=== PATIENT | male | born 1970 | race Caucasian/White ===

== ENCOUNTER → 2017-04-19 | Emergency (ER) | payer OTHER ==
[~2017-04-19] VITALS: Ht 177.8 cm; Wt 77.1 kg
[~2017-04-19] MED LIST: JENTADUETO XR1 EACH; OSEL75CA PO; TUSSI PRES-B L120 M1 PO
== END | disposition home or self-care (01) ==
LOC: ER 09:14
DX: B34.9 Viral infection, unspecified (principal); E11.65 Type 2 diabetes mellitus with hyperglycemia

== ENCOUNTER 2025-02-11 17:40 | Inpatient (IN) | payer OTHER ==
[~2025-02-11] VITALS: Ht 175.3 cm; Wt 86.2 kg
[2025-02-11] MEDS ORDERED: TOPROL XL25 M1 PO (19:08)
[2025-02-11] MEDS ORDERED: LANTUS SOL100 UNIT/1 SQ (19:08)
[2025-02-11] MEDS ORDERED: ARBLI10 MG/1 ML PO (19:10)
[2025-02-11] MEDS ORDERED: GLIMEPIRIDE1 M1 PO (19:10)
--- NOTE | 2025-02-11 19:13 | NUR ---
SE RECIBE PTE ALERTA Y ORIENTADO X3 REFIRIENDO [facility] Y VOMITOS Y DIARREAS. REFIERE EL ALVAREZ DE [employer] S[employer]ERS TENIDO 1 EPISODIO DE VOMITOS. SE MIDEN S/V Y SE UBICA.
[2025-02-11] MEDS ORDERED: LACTOBACILLUS ACIDOPHILUS 1 CAP CAP PO ONE ×2 (19:30→21:41)
[2025-02-11] MEDS ORDERED: ONDANSETRON HCL 2 MG/ML VIAL IV ONE (19:30)
[2025-02-11] MEDS ORDERED: LEVALBUTEROL HCL 1.25 MG/3 ML SOLUTION IH SCH (19:30)
[2025-02-11] MEDS ORDERED: IPRATROPIUM BROMIDE 0.5 MG/2.5 ML AMPUL.NEB IH SCH (19:30)
[2025-02-11] MEDS ORDERED: FAMOTIDINE/PF 20 MG/2 ML VIAL IV ONE (19:30)
[2025-02-11] MEDS ORDERED: BUDESONIDE 0.5 MG/2 ML AMPUL.NEB IH ONE ×2 (19:30→21:25)
[2025-02-11] MEDS ORDERED: 0.9 % SODIUM CHLORIDE 1,000 ML IV ONE (19:30)
[2025-02-11] MEDS ORDERED: IPRATROPIUM BROMIDE 0.5 MG/2.5 ML AMPUL.NEB IH ONE (21:25)
[2025-02-11] MEDS ORDERED: FAMOTIDINE/PF 20 MG/2 ML VIAL ONE (21:41)
[2025-02-11] MEDS ORDERED: ONDANSETRON HCL 2 MG/ML VIAL ONE (21:42)
[2025-02-11 22:11] LABS: BASO % 0.5 % (0.1-1.2); EOS # 0.14 (0.04-0.54); EOS % 3.2 % (0.7-7.0); LYMPH # 0.41 (1.18-3.74); LYMPH % 9.3 % (19.3-53.1); MEAN PLATELET VOLUME 10.10 fl (9.4-12.4); MONO # 0.47 (0.24-0.82); MONO % 10.7 % (4.7-12.5); NEUT # 3.35 (1.56-6.13); NEUT % 76.1 % (34.0-71.1); RED CELL DISTRIBUTION WIDTH 15.0 % (11.6-14.4)
[2025-02-11 22:38] LABS: ALT/SGPT 78.0 U/L (12-78); AST/SGOT 23.0 U/L (15-37); BILIRUBIN TOTAL 0.55 mg/dL (0.3-1.2); BILIRUBIN,CONJUGATED 0.18 mg/dL (0.0-0.2); BUN CREA RATIO 12.0 (7.0-25.0); GFR 13.42; GLOBULINA 3.5 G/DL (2.4-3.5)
[2025-02-11 22:45] LABS: GLUCOSE FASTING 226.0 mg/dL (65-100); OSMOLALITY SERUM 305.0 MOSM/KG (275-295)
[2025-02-11 22:46] LABS: CREATININE SERUM 4.59 mg/dL (0.70-1.30)
--- NOTE | 2025-02-11 22:48 | NUR ---
SE EDUCA PACIENTE SOBRE EL [place] MEDICO Y ESTA REFIERE ENTENDER. SE BILL MUESTRAS DE LABORATORIOS Y SE ENVIAN. SE CANALIZA Y SE ADMINISTRA MEDICAMENTOS MAGNOLIA ORDEN MEDICA. SE ENTREGA ENVASE DE FECAL
[2025-02-11] MEDS ORDERED: 0.9 % SODIUM CHLORIDE 500 ML IV ONE (23:30)
[2025-02-11] MEDS ORDERED: AMLODIPINE BESYLATE 5 MG TABLET PO ONE (23:30)
[2025-02-11 23:49] LABS: COVID-19 AG NEGATIVE (NEGATIVE)
[2025-02-12 03:52] LABS: INR 1.05
[2025-02-12 07:03] LABS: URINE APPEARANCE Clear; URINE BILIRRUBIN Negative (NEGATIVE); URINE BLOOD Moderate; URINE COLOR Yellow; URINE KETONE Trace (NEGATIVE); URINE LEUKOCYTE Negative; URINE NITRATE Negative; URINE PROTEIN >=1000 (NEGATIVE); URINE UROBILINOGEN 0.2 E.U./dl
[2025-02-12 07:07] LABS: URINE BACTERIA 50.4 uL (0.0-1933); URINE CAST 1.61 uL (0.0-1.40); URINE EPITHELIAL CELLS 7.3 uL (0.0-38.8); URINE RBC 3.9 uL (0.0-20.8); URINE WBC 2.9 uL (0.0-23.2)
[2025-02-12 07:22] LABS: URINE GLUCOSE 250 MG/DL (NEGATIVE)
--- NOTE | 2025-02-12 07:32 | NUR ---
SE RECIBE PACIENTE ALERTA Y ORIENTADO X3. BARANDAS SE ENCUENTRAN ELEBADAS. SE PROCEDE A KULDIP S/V.
[2025-02-12] MEDS ORDERED: APIXABAN 5 MG TABLET PO SCH (10:28)
[2025-02-12] MEDS ORDERED: DOXAZOSIN MESYLATE 4 MG TABLET PO SCH (10:28)
[2025-02-12] MEDS ORDERED: METOPROLOL SUCCINATE 50 MG TAB.SR.24H PO SCH (10:29)
[2025-02-12] MEDS ORDERED: PANTOPRAZOLE SODIUM 40 MG/VIAL VIAL IV PUSH SCH (10:29)
[2025-02-12] MEDS ORDERED: DEXTROSE 50 % IN WATER 0.5 G/ML DISP.SYRIN IV PRN (10:30)
[2025-02-12] MEDS ORDERED: INSULIN LISPRO 1,000 UNIT/10 ML UNITS SUBCUTANEO PRN (10:30)
[2025-02-12] MEDS ORDERED: ONDANSETRON 4 MG TAB.RAPDIS PO PRN (10:30)
[2025-02-12] MEDS ORDERED: 0.9 % SODIUM CHLORIDE 1,000 ML IV SCH (10:30)
[2025-02-12 14:10] VITALS: BP 160/90; O2SAT 98
[2025-02-13 01:15] VITALS: BP 145/74; O2SAT 96
[2025-02-13 07:42] LABS: ALT/SGPT 49.0 U/L (12-78); AST/SGOT 20.0 U/L (15-37); BILIRUBIN TOTAL 0.48 mg/dL (0.3-1.2); CHOL HDL RATIO 5.8 (0-5.0); GLOBULINA 2.7 G/DL (2.4-3.5); GLUCOSE FASTING 163.0 mg/dL (65-100); HDL 26.0 mg/dl (40-60); LDL 102.0 mg/dl (0-130); OSMOLALITY SERUM 296.0 MOSM/KG (275-295); PROSTATIC SPECIFIC ANTIGEN 0.698 NG/ML (0.010-4.00); T4 FREE 1.34 NG/ML (0.76-1.46); TSH 0.591 uIU/mL (0.358-3.74); VLDL 23.0 (0-39)
[2025-02-13 08:18] LABS: BUN CREA RATIO 12.0 (7.0-25.0); GFR 13.38
[2025-02-13 08:19] LABS: CREATININE SERUM 4.6 mg/dL (0.70-1.30)
[2025-02-13 09:22] VITALS: BP 166/92; O2SAT 96
[2025-02-13] MEDS ORDERED: RINGERS SOLUTION,LACTATED 1,000 ML IV SCH (11:00)
[2025-02-13] MEDS ORDERED: SOD FERRIC GLUC COMPLX/SUCROSE 62.5 MG in 0.9 % SODIUM CHLORIDE 50 ML IV SCH (12:00)
[2025-02-13] MEDS ORDERED: MAGNESIUM SULFATE/D5W 1GM/100ML PIGGYBAG IV NR (12:15)
[2025-02-13] MEDS ORDERED: CALCITRIOL 0.5 MCG CAPSULE PO NR (12:15)
[2025-02-13] MEDS ORDERED: ISOSORBIDE MONONITRATE 30 MG TABLET PO NR (12:15)
[2025-02-13] MEDS ORDERED: CITRIC ACID/SODIUM CITRATE 30 ML BLIST.PACK PO SCH (17:00)
[2025-02-13] MEDS ORDERED: EMPAGLIFLOZIN 10 MG TABLET PO SCH (17:00)
[2025-02-13 17:08] VITALS: O2SAT 98
[2025-02-13 18:01] VITALS: BP 160/85; O2SAT 98
[2025-02-13 21:59] VITALS: O2SAT 98
[2025-02-13 23:57] LABS: FE 50.0 ug/dl (65-175)
[2025-02-14] VITALS (9 sets, daily range): BP systolic 153–178; BP diastolic 76–95; O2SAT 95–98
[2025-02-14 05:38] LABS: BASO % 0.3 % (0.1-1.2); EOS # 0.26 (0.04-0.54); EOS % 7.9 % (0.7-7.0); LYMPH # 0.64 (1.18-3.74); LYMPH % 19.4 % (19.3-53.1); MEAN PLATELET VOLUME 11.60 fl (9.4-12.4); MONO # 0.46 (0.24-0.82); NEUT # 1.93 (1.56-6.13); NEUT % 58.5 % (34.0-71.1); RED CELL DISTRIBUTION WIDTH 14.7 % (11.6-14.4)
[2025-02-14 05:47] LABS: MONO % 13.9 % (4.7-12.5)
[2025-02-14 06:43] LABS: BUN CREA RATIO 11.0 (7.0-25.0); GFR 11.67
[2025-02-14 07:34] LABS: GLUCOSE FASTING 206.0 mg/dL (65-100); OSMOLALITY SERUM 303.0 MOSM/KG (275-295)
[2025-02-14 07:35] LABS: CREATININE SERUM 5.18 mg/dL (0.70-1.30)
[2025-02-14] MEDS ORDERED: ISOSORBIDE MONONITRATE 30 MG TABLET PO SCH (09:00)
[2025-02-14] MEDS ORDERED: CALCITRIOL 0.5 MCG CAPSULE PO SCH (09:00)
[2025-02-14 15:00] LABS: FOLIC ACID 16.77 ng/ml (4.78-20)
[2025-02-15] VITALS (9 sets, daily range): BP systolic 95–183; BP diastolic 60–105; O2SAT 95–99
[2025-02-15 04:43] LABS: BASO % 0.6 % (0.1-1.2); EOS # 0.26 (0.04-0.54); EOS % 7.4 % (0.7-7.0); LYMPH # 0.67 (1.18-3.74); LYMPH % 19.1 % (19.3-53.1); MEAN PLATELET VOLUME 10.70 fl (9.4-12.4); MONO # 0.39 (0.24-0.82); MONO % 11.1 % (4.7-12.5); NEUT # 2.16 (1.56-6.13); NEUT % 61.8 % (34.0-71.1); RED CELL DISTRIBUTION WIDTH 14.2 % (11.6-14.4)
[2025-02-15 05:22] LABS: BUN CREA RATIO 11.0 (7.0-25.0); GFR 10.93
[2025-02-15 06:19] LABS: GLUCOSE FASTING 257.0 mg/dL (65-100); OSMOLALITY SERUM 306.0 MOSM/KG (275-295)
[2025-02-15 06:20] LABS: CREATININE SERUM 5.48 mg/dL (0.70-1.30)
[2025-02-15] MEDS ORDERED: INSULIN GLARGINE,HUM.REC.ANLOG 1,000 UNITS/10 ML UNITS SUBCUTANEO STA (09:11)
[2025-02-15] MEDS ORDERED: hydrALAZINE HCL 20 MG VIAL IV PRN (13:00)
[2025-02-15] MEDS ORDERED: DOXAZOSIN MESYLATE 8 MG TABLET PO SCH (17:00)
[2025-02-16] VITALS (7 sets, daily range): BP systolic 104–176; BP diastolic 65–98; O2SAT 93–99
[2025-02-16] MEDS ORDERED: INSULIN GLARGINE,HUM.REC.ANLOG 1,000 UNITS/10 ML UNITS SUBCUTANEO SCH ×2 (09:00→09:30)
[2025-02-16 09:16] LABS: BUN CREA RATIO 10.0 (7.0-25.0); GFR 10.69
[2025-02-16 09:19] LABS: OSMOLALITY SERUM 305.0 MOSM/KG (275-295)
[2025-02-16 09:20] LABS: CREATININE SERUM 5.59 mg/dL (0.70-1.30); GLUCOSE FASTING 278.0 mg/dL (65-100)
[2025-02-16] MEDS ORDERED: INSULIN LISPRO 1,000 UNIT/10 ML UNITS SUBCUTANEO STA (09:29)
[2025-02-16] MEDS ORDERED: LEVALBUTEROL HCL 1.25 MG/3 ML SOLUTION IH STA (11:14)
[2025-02-16] MEDS ORDERED: BUDESONIDE 0.5 MG/2 ML AMPUL.NEB IH STA (11:14)
[2025-02-16] MEDS ORDERED: INSULIN LISPRO 1,000 UNIT/10 ML UNITS SUBCUTANEO SCH (12:00)
[2025-02-16] MEDS ORDERED: LEVALBUTEROL HCL 1.25 MG/3 ML SOLUTION IH SCH (17:00)
[2025-02-16] MEDS ORDERED: BUDESONIDE 0.5 MG/2 ML AMPUL.NEB IH ONE (17:28)
[2025-02-16] MEDS ORDERED: BUDESONIDE 0.5 MG/2 ML AMPUL.NEB IH SCH (21:00)
[2025-02-17] VITALS (9 sets, daily range): BP systolic 100–166; BP diastolic 67–90; O2SAT 90–99
[2025-02-17] MEDS ORDERED: INSULIN LISPRO 1,000 UNIT/10 ML UNITS SUBCUTANEO STA (08:57)
[2025-02-17] MEDS ORDERED: INSULIN GLARGINE,HUM.REC.ANLOG 1,000 UNITS/10 ML UNITS SUBCUTANEO SCH (09:00)
[2025-02-17] MEDS ORDERED: INSULIN LISPRO 1,000 UNIT/10 ML UNITS SUBCUTANEO SCH (12:00)
[2025-02-18] VITALS (7 sets, daily range): BP systolic 121–157; BP diastolic 72–96; O2SAT 88–100
[2025-02-18 06:43] LABS: BUN CREA RATIO 12.0 (7.0-25.0); GFR 9.92; GLUCOSE FASTING 191.0 mg/dL (65-100); OSMOLALITY SERUM 299.0 MOSM/KG (275-295)
[2025-02-18 07:11] LABS: CREATININE SERUM 5.96 mg/dL (0.70-1.30)
[2025-02-18] MEDS ORDERED: AZITHROMYCIN 500 MG VIAL IV ONE (15:32)
[2025-02-18] MEDS ORDERED: LACTOBACILLUS ACIDOPHILUS 1 CAP CAP PO SCH (17:00)
[2025-02-18] MEDS ORDERED: AZITHROMYCIN 500 MG VIAL IV SCH (17:00)
[2025-02-18] MEDS ORDERED: CEFTRIAXONE SODIUM 1,000 MG VIAL IV SCH (17:00)
[2025-02-19] VITALS (9 sets, daily range): BP systolic 100–148; BP diastolic 61–88; O2SAT 97–100
[2025-02-19] MEDS ORDERED: INSULIN LISPRO 1,000 UNIT/10 ML UNITS SUBCUTANEO SCH (08:00)
[2025-02-19 14:11] LABS: a:g ratio 0.8 (0.7-1.7); alpha 1 g 0.3 g/dL (0.0-0.4); beta g 1.0 g/dL (0.7-1.3); gamma g 0.9 g/dL (0.4-1.8); globulin t 3.2 g/dL (2.2-3.9); prot total 5.9 g/dL (6.0-8.5)
[2025-02-19] MEDS ORDERED: DOXYCYCLINE HYCLATE 100MG EACH PO SCH (17:00)
[2025-02-20] VITALS (9 sets, daily range): BP systolic 100–162; BP diastolic 66–83; O2SAT 97–99
[2025-02-20] MEDS ORDERED: INSULIN LISPRO 1,000 UNIT/10 ML UNITS SUBCUTANEO SCH (08:00)
[2025-02-21 01:12] VITALS: O2SAT 99
[2025-02-21 03:18] VITALS: BP 148/71; O2SAT 99
[2025-02-21 05:26] VITALS: O2SAT 96
[2025-02-21 06:06] LABS: hav igm Negative (Negative); hep b c Negative (Negative)
[2025-02-21] MEDS ORDERED: SOD FERRIC GLUC COMPLX/SUCROSE 125 MG in 0.9 % SODIUM CHLORIDE 100 ML IV SCH (09:00)
[2025-02-21] MEDS ORDERED: Cyanocobalamin/Mecobalamin 1 TAB.SL SL SCH (09:00)
[2025-02-21] MEDS ORDERED: INSULIN LISPRO 1,000 UNIT/10 ML UNITS SUBCUTANEO ONE (09:47)
[2025-02-21 17:24] VITALS: BP 158/91; O2SAT 99
[2025-02-22] VITALS (9 sets, daily range): BP systolic 122–155; BP diastolic 73–90; O2SAT 95–100
[2025-02-22 05:50] LABS: BASO % 0.6 % (0.1-1.2); EOS # 0.28 (0.04-0.54); EOS % 5.3 % (0.7-7.0); LYMPH # 0.80 (1.18-3.74); LYMPH % 15.0 % (19.3-53.1); MEAN PLATELET VOLUME 10.40 fl (9.4-12.4); MONO # 0.75 (0.24-0.82); NEUT # 3.44 (1.56-6.13); NEUT % 64.6 % (34.0-71.1); RED CELL DISTRIBUTION WIDTH 14.4 % (11.6-14.4)
[2025-02-22 06:15] LABS: MONO % 14.1 % (4.7-12.5)
[2025-02-22 06:56] LABS: ALT/SGPT 28.0 U/L (12-78); AST/SGOT 25.0 U/L (15-37); BILIRUBIN TOTAL 0.3 mg/dL (0.3-1.2); BUN CREA RATIO 13.0 (7.0-25.0); CHOL HDL RATIO 5.1 (0-5.0); GFR 12.93; GLOBULINA 3.4 G/DL (2.4-3.5); GLUCOSE FASTING 150.0 mg/dL (65-100); HDL 41.0 mg/dl (40-60); LDL 147.0 mg/dl (0-130); OSMOLALITY SERUM 298.0 MOSM/KG (275-295); VLDL 20.0 (0-39)
[2025-02-22 07:17] LABS: CREATININE SERUM 4.74 mg/dL (0.70-1.30)
[2025-02-22] MEDS ORDERED: INSULIN LISPRO 1,000 UNIT/10 ML UNITS SUBCUTANEO STA (08:38)
[2025-02-22] MEDS ORDERED: LOSARTAN POTASSIUM 50 MG TABLET PO SCH (09:00)
[2025-02-22] MEDS ORDERED: INSULIN GLARGINE,HUM.REC.ANLOG 1,000 UNITS/10 ML UNITS SUBCUTANEO SCH (09:00)
[2025-02-22] MEDS ORDERED: EPOETIN ALFA-EPBX 10,000 UNIT/ML VIAL (Retacrit) SUBCUTANEO SCH (09:00)
[2025-02-22] MEDS ORDERED: INSULIN LISPRO 1,000 UNIT/10 ML UNITS SUBCUTANEO SCH (12:00)
[2025-02-22] MEDS ORDERED: APIXABAN 2.5 MG TABLET PO SCH (17:00)
[2025-02-23] VITALS (9 sets, daily range): BP systolic 93–125; BP diastolic 61–77; O2SAT 95–100
[2025-02-23] MEDS ORDERED: SOD FERRIC GLUC COMPLX/SUCROSE 62.5 MG/5 ML AMPUL IV ONE (11:08)
[2025-02-24] VITALS (7 sets, daily range): BP systolic 130–155; BP diastolic 78–90; O2SAT 98–100
[2025-02-24] MEDS ORDERED: INSULIN LISPRO 1,000 UNIT/10 ML UNITS SUBCUTANEO SCH (08:00)
[2025-02-24] MEDS ORDERED: SOD FERRIC GLUC COMPLX/SUCROSE 62.5 MG/5 ML AMPUL IV ONE (08:17)
[2025-02-24] MEDS ORDERED: INSULIN GLARGINE,HUM.REC.ANLOG 1,000 UNITS/10 ML UNITS SUBCUTANEO STA (09:46)
[2025-02-25] VITALS (8 sets, daily range): BP systolic 95–145; BP diastolic 63–81; O2SAT 96–100
[2025-02-25 07:33] LABS: GFR 9.41; GLUCOSE FASTING 77.0 mg/dL (65-100)
[2025-02-25 08:03] LABS: BUN CREA RATIO 13.0 (7.0-25.0); CREATININE SERUM 6.24 mg/dL (0.70-1.30); OSMOLALITY SERUM 293.0 MOSM/KG (275-295)
[2025-02-25] MEDS ORDERED: INSULIN GLARGINE,HUM.REC.ANLOG 1,000 UNITS/10 ML UNITS SUBCUTANEO SCH ×2 (09:00)
[2025-02-25] MEDS ORDERED: DOXYCYCLINE 100 MG PO (20:32)
[2025-02-25] MEDS ORDERED: RETACRIT10000 UNIT SUBCUTANEO (20:32)
[2025-02-25] MEDS ORDERED: DOXAZOSIN MESYLA8 MG PO (20:32)
[2025-02-25] MEDS ORDERED: ELIQUIS2.5 MG PO (20:32)
[2025-02-25] MEDS ORDERED: ISOSORBIDE MONO30 MG PO (20:32)
[2025-02-25] MEDS ORDERED: COZAAR50 MG PO (20:33)
[2025-02-25] MEDS ORDERED: TOPROL XL50 M1 PO (20:33)
[2025-02-25] MEDS ORDERED: INSULIN LI100 UNIT/1 SUBCUTANEO (20:34)
[2025-02-25] MEDS ORDERED: Lantus 1000 UNITS/10 SUBCUTANEO (20:34)
[2025-02-25] MEDS ORDERED: HYDRALAZINE HCL50 MG PO (20:34)
[2025-02-25] MEDS ORDERED: INTESTINEX680 M1 PO (20:34)
[2025-02-25] MEDS ORDERED: Neurin-Sl Tablet Sl SL (20:35)
[2025-02-25] MEDS ORDERED: CALCITRIOL0.5 MCG PO (20:35)
== END 2025-02-25 22:08 | disposition home or self-care (01) | DRG 675 ==
LOC: ER 17:41 → SEC-K 02-12 12:01 → MEDI 02-12 12:01 → MEDJ 02-12 12:01 → MEDI 02-13 00:15 → MEDJ 02-18 10:25
PROVIDERS: General Practice; Internal Medicine; Internal Medicine Nephrology; Student in an Organized Health Care Education/Training Program; ADMIT Internal Medicine; ATTEND Internal Medicine
PROC: BT43ZZZ Ultrasonography of Bilateral Kidneys (ICD-10-PCS; 2025-02-12)
PROC: 4A12X4Z Monitoring of Cardiac Electrical Activity, External Approach (ICD-10-PCS; 2025-02-13)
PROC: B246ZZZ Ultrasonography of Right and Left Heart (ICD-10-PCS; 2025-02-13)
PROC: BW21ZZZ Computerized Tomography (CT Scan) of Abdomen and Pelvis (ICD-10-PCS; 2025-02-14)
PROC: BW30ZZZ Magnetic Resonance Imaging (MRI) of Abdomen (ICD-10-PCS; 2025-02-14)
PROC: 3E0F7GC Introduction of Other Therapeutic Substance into Respiratory Tract, Via Natural or Artificial Opening (ICD-10-PCS; 2025-02-16)
PROC: 5A1D70Z Performance of Urinary Filtration, Intermittent, Less than 6 Hours Per Day (ICD-10-PCS; 2025-02-21)
PROC: 02H633Z Insertion of Infusion Device into Right Atrium, Percutaneous Approach (ICD-10-PCS; 2025-02-21)
PROC: 0JH63XZ Insertion of Tunneled Vascular Access Device into Chest Subcutaneous Tissue and Fascia, Percutaneous Approach (ICD-10-PCS; principal; 2025-02-21 07:15)
PROC: 5A1D70Z Performance of Urinary Filtration, Intermittent, Less than 6 Hours Per Day (ICD-10-PCS; 2025-02-22)
PROC: 5A1D70Z Performance of Urinary Filtration, Intermittent, Less than 6 Hours Per Day (ICD-10-PCS; 2025-02-25)
DX: N18.6 End stage renal disease (principal); I50.9 Heart failure, unspecified; N17.9 Acute kidney failure, unspecified; J00 Acute nasopharyngitis [common cold]; R53.81 Other malaise; B34.9 Viral infection, unspecified; E11.65 Type 2 diabetes mellitus with hyperglycemia; Z79.4 Long term (current) use of insulin
CPT/HCPCS: 74181